=== PATIENT | male | born 1995 ===

== ENCOUNTER 2017-04-10 16:16 | Observation (INO) | payer MEDICAID ==
[2017-04-10 16:29] VITALS: BP 130/81; PULSE 70; RESP 16; TEMP 98.3; O2SAT 100
[2017-04-10] MEDS ORDERED: Sodium Chloride 0.9% 1,000 ML IV STA (16:48)
[2017-04-10 17:27] LABS: BASO # 0.1 K/uL (0.0-0.2); BASO % 0.7 % (0.0-2.0); EOS % 0.2 % (0.0-4.0); HEMATOCRIT 44.7 % (35.0-51.0); LYMPH # 2.4 K/uL (1.0-4.3); MEAN CORPUSCULAR HEMOGLOBIN 30.7 pg (27.0-31.0); MEAN CORPUSCULAR HGB CONC 33.7 g/dL (33.0-37.0); MEAN PLATELET VOLUME 7.7 fl (7.2-11.7); MONO # 0.6 K/uL (0.0-0.8); MONO % 5.6 % (0.0-10.0); NEUT # 7.2 K/uL (1.8-7.0); NEUT % 70.5 % (50.0-75.0); NRBC % 0.1 % (0.0-0.0); RED CELL DISTRIBUTION WIDTH 12.9 % (11.5-14.5); WHITE BLOOD COUNT 10.3 K/uL (4.8-10.8)
[2017-04-10 17:33] LABS: ALB/GLOB RATIO 1.6 (1.0-2.1); ALCOHOL SERUM < 10 mg/dl (0-10); ALKALINE PHOSPHATASE 60 U/L (38-126); ALT/SGPT 30 U/L (21-72); AST/SGOT 42 U/L (17-59); BILIRUBIN,TOTAL 0.5 mg/dl (0.2-1.3); BLOOD UREA NITROGEN 19 mg/dl (9-20); CALCIUM 9.6 mg/dL (8.4-10.2); CARBON DIOXIDE 25 mmol/L (22-30); CHLORIDE 103 mmol/L (98-107); GFR AFRICAN-AMERICAN > 60; GLUCOSE,RANDOM 95 mg/dL (75-110); LIPASE 41 U/L (23-300); POTASSIUM 4.3 MMOL/L (3.6-5.0); SODIUM 140 mmol/l (132-148); TOTAL PROTEIN 7.5 G/DL (6.3-8.2)
--- NOTE | 2017-04-10 17:50 | ED PDOC ---
HPI: Abdomen Time Seen by Provider: 04/10/17 16:36 Chief Complaint (Nursing): Abdominal Pain Chief Complaint (Provider): Abdominal Pain History Per: Patient History/Exam Limitations: no limitations Onset/Duration Of Symptoms: Days (x2) Current Symptoms Are (Timing): Still Present Additional Complaint(s): Antonio Soto is a 21 year old male who presents to the emergency department with a complaint of upper abdominal pain that comes and goes associated with vomiting, dizziness and nausea ongoing for 2 days. Denied any fever, chills, headaches, runny nose, dysuria, hematuria, constipation or chest pain. Patient stated that abdominal pains are similar to swollen pancreas pain that he has experienced in past. PMD: Bishop Martins MD Past Medical History Reviewed: Historical Data, Nursing Documentation, Vital Signs Vital Signs: Last Vital Signs Temp 98.3 F 04/10/17 16:26 Pulse 70 04/10/17 16:26 Resp 16 04/10/17 16:26 BP 130/81 04/10/17 16:26 Pulse Ox 100 04/10/17 18:23 - Medical History PMH: Anxiety Other PMH: pancreatitis - Surgical History Surgical History: No Surg Hx - Family History Family History: States: Unknown Family Hx - Living Arrangements Living Arrangements: With Family - Social History Current smoker - smoking cessation education provided: No Alcohol: None Drugs: Denies - Immunization History Hx Tetanus Toxoid Vaccination: No Hx Influenza Vaccination: Yes Hx Pneumococcal Vaccination: No - Home Medications Home Medications: Ambulatory Orders Medication Instructions Recorded Ciprofloxacin [Cipro] 1 tab PO BID #10 tab 05/08/16 Mupirocin 2% Cream [Bactroban 30 applic EXT BID #1 tube 05/08/16 Cream] - Allergies Allergies/Adverse Reactions: Allergies Allergy/AdvReac Type Severity Reaction Status Date / Time No Known Allergies Allergy Verified 04/10/17 16:26 Review of Systems ROS Statement: Except As Marked, All Systems Reviewed And Found Negative Constitutional: Negative for: Fever, Chills ENT: Negative for: Nose Discharge Cardiovascular: Negative for: Chest Pain Gastrointestinal: Positive for: Nausea, Vomiting, Abdominal Pain (intermitter upper quadrants). Negative for: Constipation Genitourinary Male: Negative for: Dysuria, Hematuria Neurological: Positive for: Dizziness. Negative for: Headache Physical Exam - Reviewed Nursing Documentation Reviewed: Yes Vital Signs Reviewed: Yes - Physical Exam Appears: Positive for: Non-toxic, No Acute Distress Head Exam: Positive for: ATRAUMATIC, NORMAL INSPECTION, NORMOCEPHALIC Skin: Positive for: Normal Color Eye Exam: Positive for: Normal appearance ENT: Positive for: Normal ENT Inspection Neck: Positive for: Normal, Painless ROM, Supple Cardiovascular/Chest: Positive for: Regular Rate, Rhythm. Negative for: Chest Non Tender Respiratory: Positive for: Normal Breath Sounds. Negative for: Respiratory Distress Gastrointestinal/Abdominal: Positive for: Soft, Tenderness (RUQ; No tenderness to umbilical or lower abd quadrants). Negative for: Normal Exam, Mass Back: Positive for: Normal Inspection. Negative for: L CVA Tenderness, R CVA Tenderness Extremity: Positive for: Normal ROM. 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 Will need CT of kidney and RUQ for further eval. Dr. Irvin to fu on imaging. Medical Decision Making Medical Decision Making: Initial Impression: RUQ pain Initial Plan: * Urine dip * Toradol 15mg IVP * NS 1,000ml IV per 1,000mls/hr * US ABD * Admit to hospital Scribe Attestation: Documented by Kym Wood, acting as a scribe for Damien Philip MD. Provider Scribe Attestation: All medical record entries made by the Scribe were at my direction and personally dictated by me. I have reviewed the chart and agree that the record accurately reflects my personal performance of the history, physical exam, medical decision making, and the department course for this patient. I have also personally directed, reviewed, and agree with the discharge instructions and disposition. ED OBSERVATION Date of observation admission: 04/10/17 Time of observation admission: 16:49 - Observation admission statement Patient is being placed in observation because:: RUQ pain - Goals of Observation Goals of observation are:: resolution of symptoms - Progress Note Progress Note: Time: 1818 --Patient is resting comfortably with stable vital signs. Disposition - Clinical Impression Clinical Impression: Abdominal pain - Patient ED Disposition Is Patient to be Admitted: Transfer of Care - Disposition Disposition: Transfer of Care Disposition Time: 16:49 Condition: STABLE
--- NOTE | 2017-04-10 18:31 | US ---
HISTORY: epigastric and RUQ pain COMPARISON: None. TECHNIQUE: Grayscale imaging was performed. FINDINGS: LIVER: Measures 16.0 cm in length. Normal echogenicity of the liver parenchyma. No mass. No intrahepatic bile duct dilatation. GALLBLADDER: Unremarkable. No gallstones. COMMON BILE DUCT: Measures 4.6 mm. No stones. No dilatation. PANCREAS: Unremarkable as visualized. No mass. No ductal dilatation. RIGHT KIDNEY: Measures 10.9 cm in length. There is diffuse increased echogenicity. No calculus, mass, or hydronephrosis. AORTA: No aneurysmal dilatation. IVC: Unremarkable. OTHER FINDINGS: None . IMPRESSION: No cholelithiasis or biliary dilatation. Diffuse increased echogenicity in the right kidney is concerning for medical renal disease. Clinical follow-up is advised.
--- NOTE | 2017-04-10 19:14 | ED PDOC ---
- Laboratory Results Result Diagrams: 04/10/17 17:00 04/10/17 17:00 - ECG O2 Sat by Pulse Oximetry: 100 (RA) Pulse Ox Interpretation: Normal Medical Decision Making Medical Decision Making: Time: 1899 --Patient was signed off to provider by Dr. Damien Philip. Pending CT results and disposition. Time: 2023 --CT ABD/pelvis FINDINGS: Lower thorax: Heart size is normal. Lung bases are clear lung bases the ABDOMEN: Liver: unremarkable Gallbladder and bile ducts: unremarkable Pancreas: unremarkable Spleen: Spleen is unremarkable. There is an accessory spleen in the left upper quadrant. Adrenals: unremarkable Kidneys and ureters: unremarkable Stomach and bowel: Stomach is partially distended. Rotation is normal. Small bowel is mildly distended with fluid and air. There is no obstruction. There is fecalization of the distal ileum. Appendix is unremarkable. Colon is incompletely distended which limits evaluation. Appendix: See stomach and bowel PELVIS: Bladder: Bladder is almost empty. Reproductive: Seminal vesicles and prostate are unremarkable. ABDOMEN and PELVIS: Intraperitoneal space: There is no free air or free fluid. Bones/joints: There are no acute osseous abnormalities Soft tissues: unremarkable Vasculature: Vascular structures are unremarkable. Lymph nodes: There is shoddy adenopathy. IMPRESSION: No acute solid visceral abnormality; mild ileus, no obstruction. Scribe Attestation: Documented by Kym Wood, acting as a scribe for Rivas Irvin MD. Provider Scribe Attestation: All medical record entries made by the Scribe were at my direction and personally dictated by me. I have reviewed the chart and agree that the record accurately reflects my personal performance of the history, physical exam, medical decision making, and the department course for this patient. I have also personally directed, reviewed, and agree with the discharge instructions and disposition. Disposition Doctor Will See Patient In The: Office Counseled Patient/Family Regarding: Studies Performed, Diagnosis, Need For Followup - Clinical Impression Clinical Impression: Abdominal pain - POA Present On Arrival: None - Disposition Disposition: Routine/Home Disposition Time: 20:48 Condition: GOOD
--- NOTE | 2017-04-10 20:24 | CT ---
EXAM: CT Abdomen and Pelvis Without Intravenous Contrast EXAM DATE/TIME: 04/10/2017 6:33 PM CLINICAL HISTORY: 21 years old, male; Pain; Abdominal pain; Localized; Upper; Patient HX: HX of pancreatitis; Additional info: Kidney echogenicity; Ruq pain. Sent phy. Doc. TECHNIQUE: Axial computed tomography images of the abdomen and pelvis without intravenous contrast. All CT scans at this facility use one or more dose reduction techniques, viz.: automated exposure control; ma/kV adjustment per patient size (including targeted exams where dose is matched to indication; i.e. head); or iterative reconstruction technique. Coronal and sagittal reformatted images were created and reviewed. COMPARISON: US - ABDOMEN LIMITED 04/10/2017 6:07:48 PM FINDINGS: Lower thorax: Heart size is normal. Lung bases are clear lung bases the ABDOMEN: Liver: unremarkable Gallbladder and bile ducts: unremarkable Pancreas: unremarkable Spleen: Spleen is unremarkable. There is an accessory spleen in the left upper quadrant. Adrenals: unremarkable Kidneys and ureters: unremarkable Stomach and bowel: Stomach is partially distended. Rotation is normal. Small bowel is mildly distended with fluid and air. There is no obstruction. There is fecalization of the distal ileum. Appendix is unremarkable. Colon is incompletely distended which limits evaluation. Appendix: See stomach and bowel PELVIS: Bladder: Bladder is almost empty. Reproductive: Seminal vesicles and prostate are unremarkable. ABDOMEN and PELVIS: Intraperitoneal space: There is no free air or free fluid. Bones/joints: There are no acute osseous abnormalities Soft tissues: unremarkable Vasculature: Vascular structures are unremarkable. Lymph nodes: There is shoddy adenopathy. IMPRESSION: No acute solid visceral abnormality; mild ileus, no obstruction
== END 2017-04-10 21:14 | disposition home or self-care (01) ==
LOC: H.ER 16:16 → H.EROBSV 16:49
PROVIDERS: ADMIT Emergency Medicine; ATTEND Emergency Medicine
DX: R10.11 Right upper quadrant pain (principal); F41.9 Anxiety disorder, unspecified
CPT/HCPCS: 36415; 74176; 76705; 80053; 80320; 83690; 85025; 96374; 99282; G0378; J1885; J2405; J7040